=== PATIENT | female | born 1985 | race Caucasian/White ===

== ENCOUNTER 2022-04-09 12:11 | Emergency (ER) | payer SELFPAY ==
[~2022-04-09] VITALS: Ht 165 cm; Wt 81.6 kg
[2022-04-09] MEDS ORDERED: fentaNYL INJ 100 MCG/2 ML AMP IVP ONE (12:30)
[2022-04-09] MEDS ORDERED: LORazepam INJ 2 MG/ML (ATIVAN) VIAL IVP ONE (12:30)
[2022-04-09 12:36] LABS: HEMATOCRIT 43 % (35-52); HEMOGLOBIN 14.2 g/dL (11.5-16.0); MEAN CORPUSCULAR HEMOGLOBIN 29 pg (25-34); MEAN CORPUSCULAR HGB CONC 33 g/dL (32-36); MEAN CORPUSCULAR VOLUME 89 fL (80-99); MEAN PLATELET VOLUME 8.7 fL (9.0-12.2); PLATELET COUNT 640 10^3/uL (130-400)
[2022-04-09 12:41] LABS: CHLORIDE 106 MMOL/L (98-107); POTASSIUM 3.8 MMOL/L (3.6-5.0); SODIUM 140 MMOL/L (135-145)
[2022-04-09 12:42] LABS: CALCIUM 9.3 MG/DL (8.5-10.1)
[2022-04-09 12:43] LABS: GLUCOSE 128 MG/DL (70-105); TOTAL PROTEIN 7.8 GM/DL (6.4-8.2)
[2022-04-09 12:44] LABS: CARBON DIOXIDE 20 MMOL/L (21-32)
[2022-04-09 12:45] LABS: BILIRUBIN,TOTAL 0.6 MG/DL (0.1-1.0)
[2022-04-09 12:47] LABS: ALKALINE PHOSPHATASE 133 U/L (40-136); CREATININE SERUM 0.88 MG/DL (0.60-1.30); GFR ESTIMATED 88
[2022-04-09 12:48] LABS: BUN/CREATININE RATIO 16
[2022-04-09 12:49] LABS: BILIRUBIN,DIRECT 0.3 MG/DL (0.0-0.3); BILIRUBIN,INDIRECT 0.3 MG/DL; WHITE BLOOD COUNT 31.2 10^3/uL (4.3-11.0)
[2022-04-09 12:50] LABS: ALANINE AMINOTRANSFERASE 55 U/L (0-55)
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
[2022-04-09] MEDS ORDERED: NS 100 ML (IVPB) BAG IV ONE (13:00)
[2022-04-09] MEDS ORDERED: IOHEXOL 350 MG/ML 100 ML (OMNIPAQUE 350) VIAL IV ONE (13:00)
[2022-04-09] MEDS ORDERED: HOLD METFORMIN - RECEIVED CONTRAST 20 ML VIAL IV SCH (13:00)
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
[2022-04-09 13:16] LABS: BILIRUBIN,URINE NEGATIVE (NEGATIVE); CLARITY,URINE CLEAR; COLOR,URINE YELLOW; GLUCOSE, URINE (UA) NEGATIVE (NEGATIVE); KETONES,URINE NEGATIVE (NEGATIVE); LEUKOCYTE ESTERASE ,URINE 1+ (NEGATIVE); NITRITE,URINE NEGATIVE (NEGATIVE); PROTEIN,URINE TRACE (NEGATIVE)
[2022-04-09 13:27] LABS: AMORPHOUS SEDIMENT,UR RARE AMOR URATES /LPF; BACTERIA,URINE FEW /HPF
[2022-04-09] MEDS ORDERED: cefTRIAXone 1 GM PRE-MIX 50 ML IV STA (13:36)
[2022-04-09 13:42] LABS: AMPHETAMINE SCREEN, URINE POSITIVE (NEGATIVE); BENZODIAZEPINES SCREEN URINE NEGATIVE (NEGATIVE); COCAINE SCREEN URINE NEGATIVE (NEGATIVE)
[2022-04-09 13:43] LABS: BARBITURATE SCREEN URINE NEGATIVE (NEGATIVE); CANNABINOID SCREEN, URINE POSITIVE (NEGATIVE); METHADONE STAT NEGATIVE (NEGATIVE); OPIATE SCREEN URINE NEGATIVE (NEGATIVE); OXYCODONE STAT NEGATIVE (NEGATIVE); PROPOXYPHENE STAT NEGATIVE (NEGATIVE); TRICYCLIC ANTIDEPRESSANTS SCRE NEGATIVE (NEGATIVE)
[2022-04-09] MEDS ORDERED: LIDOCAINE/EPI 1%-1:100,000 (XYLOCAINE) 20ML INJ ONE (13:45)
[2022-04-09] MEDS ORDERED: TETANUS,DIPTH,PERTUSS P/F (BOOSTRIX) 0.5 ML VIAL IM ONE (13:45)
[2022-04-09 13:51] LABS: INR 0.9 (0.8-1.4); PROTHROMBIN TIME PATIENT 12.4 SEC (12.2-14.7)
[2022-04-09] MEDS ORDERED: LACTATED RINGERS 1,000 ML IV ONE (14:00)
[2022-04-09] MEDS ORDERED: LIDOCAINE/EPI 1%-1:100,000 (XYLOCAINE) 10 ML ONE (14:13)
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
[2022-04-09] MEDS ORDERED: SULF1TAB38 PO (14:57)
[2022-04-09] MEDS ORDERED: CEPH500T PO (14:57)
[2022-04-09] MEDS ORDERED: ACETAMINOPHEN 500 MG TAB (TYLENOL) PO ONE (15:15)
[2022-04-09 15:26] VITALS: BP 118/74
== END 2022-04-09 15:26 | disposition left against medical advice (07) ==
LOC: ER 12:20
DX: S51.011A Laceration without foreign body of right elbow, initial encounter (principal); S91.011A Laceration without foreign body, right ankle, initial encounter; S71.111A Laceration without foreign body, right thigh, initial encounter; S37.012A Minor contusion of left kidney, initial encounter; F41.9 Anxiety disorder, unspecified; R31.29 Other microscopic hematuria; R82.5 Elevated urine levels of drugs, medicaments and biological substances; F17.210 Nicotine dependence, cigarettes, uncomplicated; V49.50XA Passenger injured in collision with unspecified motor vehicles in traffic accident, initial encounter; Y92.410 Unspecified street and highway as the place of occurrence of the external cause
CPT/HCPCS: 70450; 71260; 72125; 74177; 80048; 80076; 80306; 81000; 83605; 84703; 85027; 85610; 85730; 86141; 87040; 87088; 93041; 99284; G0480; 36415; 80320; 90715